=== PATIENT | female | born 1995 | race African-American/Black ===

== ENCOUNTER 2021-08-30 02:53 | Emergency (ER) | payer SELFPAY ==
[2021-08-30] MEDS ORDERED: Boostrix 0.5 ML (Tdap) VIAL ONE (03:19)
[2021-08-30] MEDS ORDERED: Ondansetron PF 4 MG/2 ML Vial ONE (03:25)
[2021-08-30] MEDS ORDERED: Morphine 4 MG/ML VIAL ONE (03:25)
[2021-08-30] MEDS ORDERED: Ketorolac Tromethamine 30 MG/ML VIAL ONE (03:33)
[2021-08-30] MEDS ORDERED: CEFAZOLIN 1 GM VIAL ONE (03:33)
[2021-08-30] MEDS ORDERED: Lidocaine 1% PF 5 ML VIAL ONE (04:13)
== END 2021-08-30 05:21 | disposition home or self-care (01) ==
LOC: ERS 02:53
DX: S61.111A Laceration without foreign body of right thumb with damage to nail, initial encounter (principal); F17.210 Nicotine dependence, cigarettes, uncomplicated; D64.9 Anemia, unspecified; Z23 Encounter for immunization; W26.8XXA Contact with other sharp object(s), not elsewhere classified, initial encounter
CPT/HCPCS: 11740; 90471; 90715; 96374; 96375; J0690; J1885; J2270; J2405